=== PATIENT | female | born 1995 | race Caucasian/White ===

== ENCOUNTER → 2017-01-22 | Outpatient (CLI) | payer OTHER | LOC: CPRE 12:13 | PROVIDERS: ATTEND Otolaryngology | DX: J35.01 Chronic tonsillitis (principal) ==

== ENCOUNTER → 2017-01-26 | Day surgery (SDC) | payer OTHER ==
[~2017-01-26] VITALS: Ht 157.5 cm; Wt 85.1 kg
[~2017-01-26] MED LIST: *ONDANSETRON 4 MG VIAL PERIprocedural Use ONLY ONE; CHLORHEXIDINE GLUCONATE 2 % 1 PACK (2 CLOTHS) TOPICAL PRN; DEXAMETHASONE SOD PHOS 4 MG/ML VIAL ONE; DO NOT ADM ANY ANTICOAGULANT DRUGS PRN; INSULIN HUMAN REGULAR 1,000 UNITS/10 ML VIAL SQ PRN; LACTATED RINGER'S 1000 ML IV PRN; METOPROLOL TARTRATE 25 MG TAB PO PRN; MIDAZOLAM HCL 2 MG/2 ML VIAL ONE; MORPHINE SULFATE 4 MG/ML INJ ONE; ONDANSETRON HCL 4 MG/2 ML VIAL IV PUSH ONE; POVIDONE IODINE 5% (ANTISEPSIS KIT) 4 APPLICATIONS EACH NARE PRN; PROPOFOL 200 MG/20 ML AMP IV ONE; SODIUM CHLORID 0.9% 500 ML IV PRN; oxyCODONE/ACETAMINOPHEN 5 MG/325 MG TAB PO PRN
[2017-01-26 06:10] VITALS: BP 115/76; PULSE 71; RESP 16; TEMP 99.6; O2SAT 100
[2017-01-26 10:45] VITALS: BP 122/69; PULSE 77; RESP 16; TEMP 97.6; O2SAT 99
--- NOTE | 2017-01-31 14:17 | MP ---
cc: ADAN ESQUIVEL MD DATE OF SURGERY: 01/26/2017 PREOPERATIVE DIAGNOSIS: Chronic tonsillitis. POSTOPERATIVE DIAGNOSIS: Chronic tonsillitis. OPERATION: Bilateral tonsillectomy. ANESTHESIA: General endotracheal anesthesia. COMPLICATIONS: NONE. ESTIMATED BLOOD LOSS: Minimal. SPECIMENS: Bilateral tonsils. INDICATIONS FOR PROCEDURE: This is a 21-year female with chronic tonsillitis response maximal medical therapy deemed to require surgical intervention risks, benefits were described in detail to the patient and her mother. They wished to proceed as planned. OPERATIVE REPORT Once informed consent was obtained, the patient was taken to the operating room and placed supine on the operating room table. General endotracheal anesthesia was initiated following which had been was reapproximate 9 degrees. The patient was then prepped and draped in the standard surgical fashion. Once this was completed an operative time-out was undertaken. Once everyone was in agreement the procedure moved forward as planned. A Marjorie-Carlos mouth gag was placed into the patient's oral cavity. The patient was placed into suspension from the [employer] support administrator the Williamson position and at this time the right tonsil was grasped retracted in the midline using a Coblator device, on a setting of 7 and 3, the right tonsil was removed in its entirety from the anterior posterior superior to inferior dissection, leaving the tonsillar capsule intact throughout the dissection. This was then continued on the left, the left tonsil was grasped, retracted midline, Coblator device on a setting of 7 and 3 was used to remove the left tonsil from the anterior and posterior and superior to inferior dissection, removing the entire tonsil with the tonsillar capsule intact. Once this is completed using the coagulating portion of the Coblator device. Special attention was placed at the superior and inferior poles to achieve proper hemostasis. Once this was completed the patient was taken out of suspension, a Valsalva maneuver was performed at 35 mmHg. The patient was placed back into suspension. There was no further bleeding noted, this marked the end of the procedure, the patient was taken out of the suspension, Chinik-Carlos mouth gag was removed. The patient was awoken x-rayed and transferred back in stable condition. Thank you Adan Esquivel AT/ /3:38 PM /1:48 PM
== END | disposition home or self-care (01) ==
LOC: HSDC 05:23
PROVIDERS: ATTEND Otolaryngology
DX: J35.01 Chronic tonsillitis (principal)
CPT/HCPCS: 00170; 42826; 88304; J1100; J2250; J2270; J2405; J3010; J7040; J7120